=== PATIENT | male | born 1945 | race Caucasian/White ===

== ENCOUNTER 2024-03-20 12:28 | Inpatient (IN) | payer MEDICARE ==
[~2024-03-20] VITALS: Ht 167.6 cm; Wt 69.9 kg
[2024-03-20 12:55] LABS: EOSINOPHILS # (AUTO) 0.1 K/uL (0.0-0.7); EOSINOPHILS % (AUTO) 2.7 % (0.0-6.0); HEMATOCRIT 50 % (39-51); HEMOGLOBIN 17.3 g/dL (13.5-17.5); LYMPHOCYTES # (AUTO) 1.4 K/uL (0.8-4.8); LYMPHOCYTES % (AUTO) 29.4 % (20.0-44.0); MEAN CORPUSCULAR HEMOGLOBIN 33 PG (26.0-33.0); MEAN CORPUSCULAR HGB CONC 35 g/dl (31.0-36.0); MEAN CORPUSCULAR VOLUME 94 fL (80-96); MONOCYTES # (AUTO) 0.3 K/uL (0.1-1.30); MONOCYTES % (AUTO) 6.6 % (2.0-12.0); NEUTROPHILS # (AUTO) 2.9 K/uL (1.8-8.9); NEUTROPHILS % (AUTO) 60.3 % (43.0-81.0); PLATELET COUNT (AUTO) 149 K/uL (150-450); RED BLOOD CELL COUNT(AUTO) 5.34 MIL/uL (4.5-6.0); RED CELL DISTRIBUTION WIDTH 13.3 % (11.5-15.0); WHITE BLOOD COUNT (AUTO) 4.9 K/uL (4.3-11.0)
[2024-03-20 13:10] LABS: CALCIUM, SERUM 9.7 mg/dL (8.5-10.1); CARBON DIOXIDE 27 mmol/L (21-32); CHLORIDE 104 mmol/L (98-107); CREATININE 1.1 mg/dL (0.6-1.3); GLUCOSE 188 mg/dL (74-106); POTASSIUM 4.3 mmol/L (3.5-5.1); SODIUM SERUM 139 mmol/L (136-145); UREA NITROGEN, BLOOD 13 mg/dL (7-18)
[2024-03-20] MEDS ORDERED: IV NS 0.9% 250 ML IV ONE (15:37)
[2024-03-20] MEDS ORDERED: IOHEXOL-350 100 ML VIAL IV ONE (15:37)
[2024-03-20 16:18] LABS: NT-PRO BNP 34 pg/mL (0-125)
[2024-03-20] MEDS ORDERED: TAMS-12 PO (17:08)
[2024-03-20] MEDS ORDERED: METF-881 PO ×2 (17:08)
[2024-03-20] MEDS ORDERED: ATOR10TA PO (17:08)
[2024-03-20] MEDS ORDERED: EMPA25TA PO (17:08)
[2024-03-20] MEDS ORDERED: GLIM2TAB31 PO (17:08)
[2024-03-20] MEDS ORDERED: MAGNESIUM HYDROXIDE 30 ML UDC PO PRN (17:30)
[2024-03-20] MEDS ORDERED: MAG HYDROX/AL HYDROX/SIMETH 30 ML UDC PO PRN (17:30)
[2024-03-20] MEDS ORDERED: Z GUARD REMEDY 4 OZ OINT TP PRN (17:30)
[2024-03-20] MEDS ORDERED: ZOLPIDEM TARTRATE 5 MG TABLET PO PRN (17:30)
[2024-03-20] MEDS ORDERED: ONDANSETRON HCL/PF 4 MG/2 ML VIAL IVP PRN (17:30)
[2024-03-20] MEDS ORDERED: DEXTROSE 50%-WATER 50 ML DISP.SYRIN IV PRN (18:30)
[2024-03-20 20:01] VITALS: BP 130/62; TEMP 97.9; O2SAT 95
[2024-03-20 20:30] VITALS: BP 130/62; TEMP 97.9; O2SAT 95
[2024-03-20] MEDS: BLOOD SUGAR DIAGNOSTIC 1 EACH STRIP IN SCH (23:49)
[2024-03-20] MEDS: INSULIN REGULAR, HUMAN 100 UNIT/ML 3 ML VIAL SQ PRN (23:49)
[2024-03-21] VITALS: BP 124/60; TEMP 98.4; O2SAT 95
[2024-03-21 06:43] LABS: BASOPHILS % (AUTO) 0.4 % (0.0-2.0); EOSINOPHILS # (AUTO) 0.2 K/uL (0.0-0.7); EOSINOPHILS % (AUTO) 4.3 % (0.0-6.0); HEMATOCRIT 46 % (39-51); HEMOGLOBIN 15.9 g/dL (13.5-17.5); LYMPHOCYTES # (AUTO) 1.7 K/uL (0.8-4.8); LYMPHOCYTES % (AUTO) 34.8 % (20.0-44.0); MEAN CORPUSCULAR HEMOGLOBIN 32 PG (26.0-33.0); MEAN CORPUSCULAR HGB CONC 35 g/dl (31.0-36.0); MEAN CORPUSCULAR VOLUME 93 fL (80-96); MONOCYTES # (AUTO) 0.4 K/uL (0.1-1.30); MONOCYTES % (AUTO) 7.2 % (2.0-12.0); NEUTROPHILS # (AUTO) 2.7 K/uL (1.8-8.9); NEUTROPHILS % (AUTO) 53.3 % (43.0-81.0); PLATELET COUNT (AUTO) 140 K/uL (150-450); RED BLOOD CELL COUNT(AUTO) 4.96 MIL/uL (4.5-6.0); RED CELL DISTRIBUTION WIDTH 13.8 % (11.5-15.0)
[2024-03-21 07:00] LABS: CALCIUM, SERUM 9.1 mg/dL (8.5-10.1); CARBON DIOXIDE 22 mmol/L (21-32); CHLORIDE 105 mmol/L (98-107); CREATININE 0.9 mg/dL (0.6-1.3); GLUCOSE 102 mg/dL (74-106); MAGNESIUM 2.1 mg/dL (1.8-2.4); PHOSPHORUS 3.8 mg/dL (2.5-4.9); POTASSIUM 3.8 mmol/L (3.5-5.1); SODIUM SERUM 140 mmol/L (136-145); UREA NITROGEN, BLOOD 15 mg/dL (7-18)
[2024-03-21 07:05] LABS: CHOLESTEROL 119 mg/dL (<200); HDL CHOLESTEROL 66 mg/dL (40-60); LDL 37 mg/dL (0-99); TRIGLYCERIDES 104 mg/dL (30-150)
[2024-03-21] MEDS: ACETAMINOPHEN 325 MG TABLET PO PRN (07:41)
[2024-03-21 08:00] VITALS: BP 126/76; TEMP 97.5; O2SAT 98
[2024-03-21] MEDS: ATORVASTATIN 10 MG TABLET PO SCH (08:46)
[2024-03-21] MEDS: EMPAGLIFLOZIN 25 MG TABLET PO SCH (08:46)
[2024-03-21] MEDS: TAMSULOSIN 0.4 MG CAP.SR.24H PO SCH (08:47)
[2024-03-21] MEDS: ASPIRIN 81 MG TAB.CHEW PO SCH (08:47)
[2024-03-21] MEDS: GLIMEPIRIDE 4 MG TABLET PO SCH (08:49)
[2024-03-21] MEDS: METOPROLOL TARTRATE 50 MG TABLET PO SCH (11:27)
[2024-03-21 12:00] VITALS: BP 126/78; TEMP 97.6; O2SAT 96
[2024-03-21 16:00] VITALS: BP 143/79; TEMP 97.6; O2SAT 98
[2024-03-21] MEDS ORDERED: IV NS 0.9% 250 ML IV ONE (16:36)
[2024-03-21] MEDS ORDERED: IOHEXOL-350 100 ML VIAL IV ONE (16:36)
[2024-03-21] MEDS: METOPROLOL TARTRATE INJ 5 MG/5 ML AMPUL IVP PRN (16:50)
[2024-03-21] MEDS ORDERED: NITROGLYCERIN 0.4 MG/TAB BOTTLE ONE (16:58)
[2024-03-21] MEDS ORDERED: METOPROLOL TARTRATE INJ 5 MG/5 ML AMPUL ONE (16:58)
[2024-03-21] MEDS: NITROGLYCERIN 0.4 MG/TAB BOTTLE SL ONE (17:02)
[2024-03-21 20:03] VITALS: BP 124/68; TEMP 97.3; O2SAT 97
[2024-03-21 21:00] VITALS: BP 124/68; TEMP 97.3; O2SAT 95
[2024-03-22] VITALS (8 sets, daily range): BP systolic 118–136; BP diastolic 68–71; TEMP 97.9–98.2; O2SAT 95–100
[2024-03-22] MEDS: ALBUTEROL HALF STRENGTH 1.25 MG/3 ML VIAL.NEB NEB SCH (09:30)
[2024-03-22] MEDS: IPRATROPIUM NEB FS 0.5 MG/2.5 ML AMPUL.NEB NEB SCH (09:30)
[2024-03-22] MEDS ORDERED: PRED20TA PO (09:39)
[2024-03-22] MEDS ORDERED: ALBU18HF2 INH (09:39)
[2024-03-23] MEDS ORDERED: predniSONE 20 MG TABLET PO SCH (09:00)
== END 2024-03-22 11:50 | disposition home or self-care (01) | DRG 191 ==
LOC: ER 12:28 → MED 18:50 → TELE 20:09 → MED 03-22 09:50
PROVIDERS: ADMIT Nurse Practitioner Acute Care; ATTEND Internal Medicine
DX: J44.1 Chronic obstructive pulmonary disease with (acute) exacerbation (principal); K86.2 Cyst of pancreas; M94.0 Chondrocostal junction syndrome [Tietze]; I10 Essential (primary) hypertension; E78.5 Hyperlipidemia, unspecified; J44.9 Chronic obstructive pulmonary disease, unspecified; I25.10 Atherosclerotic heart disease of native coronary artery without angina pectoris; B34.9 Viral infection, unspecified; N40.0 Benign prostatic hyperplasia without lower urinary tract symptoms; Z87.891 Personal history of nicotine dependence; Z90.49 Acquired absence of other specified parts of digestive tract; F41.9 Anxiety disorder, unspecified; Z79.84 Long term (current) use of oral hypoglycemic drugs; Z79.899 Other long term (current) drug therapy
CPT/HCPCS: 36415; 71045-TC; 75574; 80048-TC; 80061-TC; 82962-TC; 83735-TC; 83880; 84100-TC; 84484-TC; 85025-TC; 85378-TC; 93307-TC; 94799-TC; G0378; J1815; J3490; J7050; Q9967